=== PATIENT | female | born 1945 | race African-American/Black ===

== ENCOUNTER 2024-04-28 08:41 | Inpatient (IN) | payer OTHER ==
[~2024-04-28] VITALS: Ht 157.5 cm; Wt 78.5 kg
[2024-04-28 09:31] LABS: BASOPHILS % (AUTO) 0.7 % (0.0-2.0); EOSINOPHILS # (AUTO) 0.4 K/uL (0.0-0.7); EOSINOPHILS % (AUTO) 7.9 % (0.0-6.0); HEMATOCRIT 41 % (33-45); HEMOGLOBIN 13.5 g/dL (11.5-14.8); LYMPHOCYTES # (AUTO) 1.1 K/uL (0.8-4.8); LYMPHOCYTES % (AUTO) 19.7 % (20.0-44.0); MEAN CORPUSCULAR HEMOGLOBIN 27 PG (26.0-33.0); MEAN CORPUSCULAR HGB CONC 33 g/dl (31.0-36.0); MEAN CORPUSCULAR VOLUME 82 fL (82-100); MONOCYTES # (AUTO) 0.7 K/uL (0.1-1.30); MONOCYTES % (AUTO) 12.9 % (2.0-12.0); NEUTROPHILS # (AUTO) 3.2 K/uL (1.8-8.9); NEUTROPHILS % (AUTO) 58.8 % (43.0-81.0); PLATELET COUNT (AUTO) 238 K/uL (150-450); RED BLOOD CELL COUNT(AUTO) 5.04 MIL/uL (4.0-5.2); RED CELL DISTRIBUTION WIDTH 13.3 % (11.5-15.0); WHITE BLOOD COUNT (AUTO) 5.4 K/uL (4.3-11.0)
[2024-04-28 09:41] LABS: CALCIUM, SERUM 8.8 mg/dL (8.5-10.1); CARBON DIOXIDE 23 mmol/L (21-32); CHLORIDE 104 mmol/L (98-107); GLUCOSE 293 mg/dL (74-106); POTASSIUM 3.9 mmol/L (3.5-5.1); SODIUM SERUM 139 mmol/L (136-145); UREA NITROGEN, BLOOD 24 mg/dL (7-18)
[2024-04-28 09:49] LABS: LACTIC ACID 1.8 mmol/L (0.4-2.0)
[2024-04-28 09:51] LABS: INR 0.99 (0.91-1.10); PARTIAL THROMBOPLASTIN TIME 24.7 SEC (24.3-34.3); PROTHROMBIN TIME 10.5 SECS (9.2-11.1)
[2024-04-28 09:59] LABS: ALANINE AMINOTRANSFERASE 20 U/L (12-78); ALBUMIN 2.9 g/dL (3.4-5.0)
[2024-04-28 10:24] LABS: ALKALINE PHOSPHATASE 112 U/L (46-116)
[2024-04-28 10:28] LABS: ASPARTATE AMINOTRANSFERASE 14 U/L (15-37); BILIRUBIN,DIRECT 0.2 mg/dL (0.0-0.2); BILIRUBIN,TOTAL 0.7 mg/dL (0.2-1.0); TOTAL PROTEIN, SERUM 7.6 g/dL (6.4-8.2)
[2024-04-28 10:29] LABS: CREATININE 1.4 mg/dL (0.6-1.3)
[2024-04-28] MEDS: CEFEPIME 1 GM in IV D5W 50 ML IV ONE (10:38)
[2024-04-28] MEDS ORDERED: MAGN400T26 PO (10:41)
[2024-04-28] MEDS ORDERED: CANA300T PO (10:41)
[2024-04-28] MEDS ORDERED: ASPI-1420 PO (10:41)
[2024-04-28] MEDS ORDERED: GABA-532 PO (10:41)
[2024-04-28] MEDS ORDERED: ACET-73 PO (10:41)
[2024-04-28] MEDS: IV NS 0.9% 1,000 ML BAG IV ONE (10:46)
[2024-04-28] MEDS ORDERED: MAGNESIUM HYDROXIDE 30 ML UDC PO PRN (11:00)
[2024-04-28] MEDS ORDERED: Z GUARD REMEDY 4 OZ OINT TP PRN (11:00)
[2024-04-28] MEDS ORDERED: MAG HYDROX/AL HYDROX/SIMETH 30 ML UDC PO PRN (11:00)
[2024-04-28] MEDS ORDERED: ONDANSETRON HCL/PF 4 MG/2 ML VIAL IVP PRN (11:00)
[2024-04-28] MEDS: VANCOMYCIN 1 GM in IV D5W 250 ML IV ONE (11:00)
[2024-04-28] MEDS: ACETAMINOPHEN 325 MG TABLET PO PRN (11:12)
[2024-04-28 12:00] VITALS: BP 155/90; TEMP 98.2; O2SAT 97
[2024-04-28] MEDS ORDERED: DEXTROSE 50%-WATER 50 ML DISP.SYRIN IV PRN (12:00)
[2024-04-28] MEDS: ENOXAPARIN SODIUM 40 MG/0.4 ML DISP.SYRIN SQ SCH (12:34)
[2024-04-28] MEDS: BLOOD SUGAR DIAGNOSTIC 1 EACH STRIP VI SCH (12:35)
[2024-04-28] MEDS: VANCOMYCIN 750 MG in IV D5W 250 ML IV ONE (12:48)
[2024-04-28] MEDS: INSULIN REGULAR, HUMAN 100 UNIT/ML 3 ML VIAL SQ PRN (13:30)
[2024-04-28 16:32] VITALS: BP 155/104; TEMP 98.4; O2SAT 99
[2024-04-28] MEDS: CLONIDINE HCL 0.1 MG TABLET PO PRN (17:18)
[2024-04-28 20:00] VITALS: BP 117/67; TEMP 97.7; O2SAT 99
[2024-04-28] MEDS: METHOCARBAMOL (500MG) 500 MG TABLET PO PRN (22:46)
[2024-04-28] MEDS: CEFEPIME 2 GM in IV D5W 100 ML IV SCH (22:55)
[2024-04-29 04:00] VITALS: BP 153/76; TEMP 98.1; O2SAT 96
[2024-04-29 06:45] LABS: BASOPHILS % (AUTO) 0.6 % (0.0-2.0); EOSINOPHILS # (AUTO) 0.3 K/uL (0.0-0.7); EOSINOPHILS % (AUTO) 5.3 % (0.0-6.0); HEMATOCRIT 39 % (33-45); HEMOGLOBIN 12.7 g/dL (11.5-14.8); LYMPHOCYTES % (AUTO) 17.8 % (20.0-44.0); MEAN CORPUSCULAR HEMOGLOBIN 27 PG (26.0-33.0); MEAN CORPUSCULAR HGB CONC 33 g/dl (31.0-36.0); MEAN CORPUSCULAR VOLUME 82 fL (82-100); MONOCYTES # (AUTO) 0.7 K/uL (0.1-1.30); MONOCYTES % (AUTO) 11.8 % (2.0-12.0); NEUTROPHILS # (AUTO) 3.7 K/uL (1.8-8.9); NEUTROPHILS % (AUTO) 64.5 % (43.0-81.0); PLATELET COUNT (AUTO) 216 K/uL (150-450); RED BLOOD CELL COUNT(AUTO) 4.77 MIL/uL (4.0-5.2); RED CELL DISTRIBUTION WIDTH 13.1 % (11.5-15.0); WHITE BLOOD COUNT (AUTO) 5.7 K/uL (4.3-11.0)
[2024-04-29 07:01] LABS: CARBON DIOXIDE 23 mmol/L (21-32); CHLORIDE 107 mmol/L (98-107); CREATININE 0.8 mg/dL (0.6-1.3); GLUCOSE 123 mg/dL (74-106); MAGNESIUM 2.1 mg/dL (1.8-2.4); PHOSPHORUS 2.6 mg/dL (2.5-4.9); POTASSIUM 3.9 mmol/L (3.5-5.1); SODIUM SERUM 140 mmol/L (136-145)
[2024-04-29 08:00] VITALS: BP 157/75; TEMP 98.6; O2SAT 98
[2024-04-29 08:47] LABS: UREA NITROGEN, BLOOD 15 mg/dL (7-18)
[2024-04-29 12:00] VITALS: BP 142/72; TEMP 98.3; O2SAT 98
[2024-04-29] MEDS: VANCOMYCIN 1 GM in IV D5W 250ml IV SCH (12:17)
[2024-04-29 16:00] VITALS: BP 148/83; TEMP 98.1; O2SAT 99
[2024-04-29] MEDS: MAGNESIUM OXIDE 400 MG TABLET PO SCH (17:36)
[2024-04-29] MEDS ORDERED: Medication Not On Formulary EA (Canagliflozin (Invokana) 300 MG) PO SCH (18:00)
[2024-04-29 20:00] VITALS: BP 150/87; TEMP 98.5; O2SAT 96
[2024-04-29] MEDS: GABAPENTIN 100 MG CAPSULE PO SCH (21:57)
[2024-04-30] MEDS: VANCOMYCIN 750 MG in IV D5W 250 ML IV SCH (00:12)
[2024-04-30 04:00] VITALS: BP 158/87; TEMP 98.8; O2SAT 96
[2024-04-30 06:44] LABS: BASOPHILS % (AUTO) 0.7 % (0.0-2.0); EOSINOPHILS # (AUTO) 0.4 K/uL (0.0-0.7); EOSINOPHILS % (AUTO) 6.6 % (0.0-6.0); HEMATOCRIT 39 % (33-45); HEMOGLOBIN 12.6 g/dL (11.5-14.8); LYMPHOCYTES # (AUTO) 1.1 K/uL (0.8-4.8); LYMPHOCYTES % (AUTO) 18.4 % (20.0-44.0); MEAN CORPUSCULAR HEMOGLOBIN 27 PG (26.0-33.0); MEAN CORPUSCULAR HGB CONC 33 g/dl (31.0-36.0); MEAN CORPUSCULAR VOLUME 82 fL (82-100); MONOCYTES # (AUTO) 0.7 K/uL (0.1-1.30); MONOCYTES % (AUTO) 11.2 % (2.0-12.0); NEUTROPHILS # (AUTO) 3.8 K/uL (1.8-8.9); NEUTROPHILS % (AUTO) 63.1 % (43.0-81.0); PLATELET COUNT (AUTO) 232 K/uL (150-450); RED BLOOD CELL COUNT(AUTO) 4.72 MIL/uL (4.0-5.2); WHITE BLOOD COUNT (AUTO) 5.9 K/uL (4.3-11.0)
[2024-04-30 07:14] LABS: CALCIUM, SERUM 8.6 mg/dL (8.5-10.1); CARBON DIOXIDE 27 mmol/L (21-32); CHLORIDE 107 mmol/L (98-107); CREATININE 0.8 mg/dL (0.6-1.3); GLUCOSE 138 mg/dL (74-106); POTASSIUM 3.9 mmol/L (3.5-5.1); SODIUM SERUM 139 mmol/L (136-145); UREA NITROGEN, BLOOD 15 mg/dL (7-18)
[2024-04-30] MEDS: ASPIRIN EC 81 MG TABLET.DR PO SCH (10:09)
[2024-04-30] MEDS: CHLORHEXIDINE GLUCONATE 4% 118 ML BOTTLE TP SCH (10:21)
[2024-04-30 12:00] VITALS: BP 147/92; TEMP 98.3; O2SAT 97
[2024-04-30 20:33] VITALS: BP 141/80; TEMP 98.4; O2SAT 97
[2024-04-30] MEDS: TRAMADOL HCL 50 MG TABLET PO PRN (21:50)
[2024-05-01 04:45] VITALS: BP 164/90; TEMP 98.1; O2SAT 97
[2024-05-01 08:00] VITALS: BP 163/94; TEMP 99.1; O2SAT 98
[2024-05-01] MEDS: GENTAMICIN 0.1% OINT 15 GM TUBE TP SCH (08:46)
[2024-05-01] MEDS ORDERED: SULF1TAB48 PO (10:55)
[2024-05-01 16:00] VITALS: BP 106/96; TEMP 97.9
[2024-05-01 20:00] VITALS: BP 155/98; TEMP 98.5; O2SAT 98
[2024-05-01] MEDS: *INSULIN REGULAR(HUMULIN R)HUM 100 UNIT/ML VIAL SQ PRN (21:26)
[2024-05-02 04:00] VITALS: BP 150/88; TEMP 98.5; O2SAT 98
[2024-05-02 08:00] VITALS: BP 154/86; TEMP 97.9; O2SAT 100
[2024-05-02 16:00] VITALS: BP 143/88; TEMP 97.7; O2SAT 97
[2024-05-02 20:00] VITALS: BP 148/95; TEMP 98.2; O2SAT 97
[2024-05-02] MEDS: SULFAMETH/TRIMETH 800/160 MG 1 UDTAB TABLET PO SCH (21:29)
[2024-05-03 04:00] VITALS: BP 152/95; TEMP 98.4; O2SAT 97
[2024-05-03 08:00] VITALS: BP 133/91; TEMP 98.4; O2SAT 97
[2024-05-03 16:00] VITALS: BP 149/99; TEMP 98.6; O2SAT 97
== END 2024-05-04 | DRG 299 ==
LOC: ER 08:48 → MEDSG1 11:03
PROVIDERS: ADMIT Internal Medicine; ATTEND Internal Medicine
DX: I87.2 Venous insufficiency (chronic) (peripheral) (principal); E43 Unspecified severe protein-calorie malnutrition; N17.0 Acute kidney failure with tubular necrosis; L97.819 Non-pressure chronic ulcer of other part of right lower leg with unspecified severity; L97.829 Non-pressure chronic ulcer of other part of left lower leg with unspecified severity; E11.40 Type 2 diabetes mellitus with diabetic neuropathy, unspecified; E11.51 Type 2 diabetes mellitus with diabetic peripheral angiopathy without gangrene; E88.09 Other disorders of plasma-protein metabolism, not elsewhere classified; M89.8X9 Other specified disorders of bone, unspecified site; Z79.84 Long term (current) use of oral hypoglycemic drugs; Z88.0 Allergy status to penicillin; Z95.820 Peripheral vascular angioplasty status with implants and grafts; Z96.642 Presence of left artificial hip joint; Z68.31 Body mass index [BMI] 31.0-31.9, adult
CPT/HCPCS: 36415; 71045-TC; 73590-TC; 80048-TC; 80076-TC; 80202-TC; 82962-TC; 83605-TC; 83735-TC; 84100-TC; 85025-TC; 85652-TC; 85730-TC; 86140-TC; 87040-TC; 93970-TC; 97110-TC; 97530-TC; A4223; A6253; A6403; G0378; J0692; J1650; J1815; J3370; J3371; J7040; J7060

== ENCOUNTER 2025-01-15 09:47 | Emergency (ER) | payer OTHER ==
[~2025-01-15] VITALS: Ht 167.6 cm; Wt 77.1 kg
[~2025-01-15 09:47] MED LIST: ACET-73 PO; ASPI-1420 PO; CANA300T PO; GABA-532 PO; MAGN400T26 PO; SULF1TAB48 PO
[2025-01-15 13:17] VITALS: BP 138/87; TEMP 98.3; O2SAT 98
== END 2025-01-15 13:19 | disposition home health service (06) ==
LOC: ER 09:49
DX: Z04.2 Encounter for examination and observation following work accident (principal); E11.9 Type 2 diabetes mellitus without complications; I10 Essential (primary) hypertension; R51.9 Headache, unspecified; Z79.82 Long term (current) use of aspirin; Z79.84 Long term (current) use of oral hypoglycemic drugs; Z86.73 Personal history of transient ischemic attack (TIA), and cerebral infarction without residual deficits; Z88.0 Allergy status to penicillin; Z60.2 Problems related to living alone; W01.190A Fall on same level from slipping, tripping and stumbling with subsequent striking against furniture, initial encounter; Y93.89 Activity, other specified; Y92.89 Other specified places as the place of occurrence of the external cause; Y99.8 Other external cause status
CPT/HCPCS: 70450-TC

== ENCOUNTER 2025-02-16 14:27 | Emergency (ER) | payer OTHER ==
[~2025-02-16] VITALS: Ht 167.6 cm; Wt 80.7 kg
[2025-02-16 14:58] LABS: BASOPHILS % (AUTO) 0.4 % (0.0-2.0); EOSINOPHILS # (AUTO) 0.1 K/uL (0.0-0.7); EOSINOPHILS % (AUTO) 2.6 % (0.0-6.0); HEMATOCRIT 40 % (33-45); HEMOGLOBIN 13.2 g/dL (11.5-14.8); LYMPHOCYTES % (AUTO) 18.6 % (20.0-44.0); MEAN CORPUSCULAR HEMOGLOBIN 27 PG (26.0-33.0); MEAN CORPUSCULAR HGB CONC 33 g/dl (31.0-36.0); MEAN CORPUSCULAR VOLUME 82 fL (82-100); MONOCYTES # (AUTO) 0.6 K/uL (0.1-1.30); NEUTROPHILS # (AUTO) 3.6 K/uL (1.8-8.9); NEUTROPHILS % (AUTO) 67.4 % (43.0-81.0); PLATELET COUNT (AUTO) 175 K/uL (150-450); RED BLOOD CELL COUNT(AUTO) 4.91 MIL/uL (4.0-5.2); WHITE BLOOD COUNT (AUTO) 5.3 K/uL (4.3-11.0)
[2025-02-16 15:11] LABS: ALANINE AMINOTRANSFERASE 21 U/L (12-78); ALBUMIN 3.1 g/dL (3.4-5.0); ALKALINE PHOSPHATASE 72 U/L (46-116); ASPARTATE AMINOTRANSFERASE 26 U/L (15-37); BILIRUBIN,DIRECT 0.4 mg/dL (0.0-0.2); BILIRUBIN,TOTAL 1.6 mg/dL (0.2-1.0); CARBON DIOXIDE 22 mmol/L (21-32); CHLORIDE 106 mmol/L (98-107); GLUCOSE 150 mg/dL (74-106); LIPASE 19 U/L (16-77); POTASSIUM 3.2 mmol/L (3.5-5.1); SODIUM SERUM 138 mmol/L (136-145); TOTAL PROTEIN, SERUM 7.4 g/dL (6.4-8.2); UREA NITROGEN, BLOOD 26 mg/dL (7-18)
[2025-02-16 15:17] LABS: CALCIUM, SERUM 8.7 mg/dL (8.5-10.1)
[2025-02-16 16:24] LABS: SERUM AMMONIA 24 umol/L (11-32)
[2025-02-16 16:31] LABS: ACETAMINOPHEN <10 ug/ml (10-30); SALICYLATE < 2.8 mg/dL (2.8-20.0)
[2025-02-16 16:32] LABS: ALCOHOL, BLOOD < 3 mg/dL (0-10)
[2025-02-16 17:38] VITALS: TEMP 98.9
[2025-02-16 18:10] VITALS: BP 171/100; O2SAT 98
== END 2025-02-16 18:42 | disposition short-term general hospital (02) ==
LOC: ER 14:30
DX: S06.5X0A Traumatic subdural hemorrhage without loss of consciousness, initial encounter (principal); R41.82 Altered mental status, unspecified; I11.9 Hypertensive heart disease without heart failure; E11.9 Type 2 diabetes mellitus without complications; Z79.82 Long term (current) use of aspirin; Z79.899 Other long term (current) drug therapy; Z60.2 Problems related to living alone; Z79.84 Long term (current) use of oral hypoglycemic drugs; Z86.73 Personal history of transient ischemic attack (TIA), and cerebral infarction without residual deficits; Z88.0 Allergy status to penicillin; W18.39XA Other fall on same level, initial encounter; Y93.89 Activity, other specified; Y92.89 Other specified places as the place of occurrence of the external cause; Y99.8 Other external cause status
CPT/HCPCS: 36415; 70450-TC; 71045-TC; 80048-TC; 80076-TC; 82140-TC; 82962-TC; 83690-TC; 84443-TC; 84484-TC; 85025-TC; G0480

== ENCOUNTER 2025-05-02 11:35 | Emergency (ER) | payer MEDICARE, OTHER ==
[~2025-05-02] VITALS: Ht 167.6 cm; Wt 76.2 kg
[2025-05-02 12:15] LABS: PLATELET COUNT (AUTO) 212 K/uL (150-450); RED BLOOD CELL COUNT(AUTO) 4.56 MIL/uL (4.0-5.2); RED CELL DISTRIBUTION WIDTH 15.3 % (11.5-15.0); WHITE BLOOD COUNT (AUTO) 5.4 K/uL (4.3-11.0)
[2025-05-02 12:24] LABS: INR 1.05 (0.91-1.10)
[2025-05-02 12:31] LABS: APPEARANCE,URINE CLEAR (CLEAR); BLOOD, URINE NEGATIVE Ery/uL (NEGATIVE); LEUKOCYTE ESTERASE ,URINE NEGATIVE (NEGATIVE); NITRITE, URINE NEGATIVE (NEGATIVE); UGLUCOSE 3+ mg/dL (NEGATIVE)
[2025-05-02 12:35] LABS: LACTIC ACID 2.9 mmol/L (0.4-2.0)
[2025-05-02 12:38] LABS: CALCIUM, SERUM 9.3 mg/dL (8.5-10.1); CREATININE 1.0 mg/dL (0.6-1.3); SODIUM SERUM 145 mmol/L (136-145); UREA NITROGEN, BLOOD 13 mg/dL (7-18)
[2025-05-02] MEDS ORDERED: IOHEXOL-300 100 ML VIAL IV ONE (12:43)
[2025-05-02] MEDS ORDERED: IV NS 0.9% 250 ML IV ONE (12:43)
[2025-05-02 12:45] LABS: ASPARTATE AMINOTRANSFERASE 13 U/L (15-37); TOTAL PROTEIN, SERUM 7.2 g/dL (6.4-8.2)
[2025-05-02 12:50] LABS: ADD URINE CULTURE NO; SQUAMOUS EPITHELIAL CELL,UR Rare /HPF (None Seen)
[2025-05-02] MEDS ORDERED: DRY EYE RELIEF EACHEYE (12:53)
[2025-05-02] MEDS ORDERED: ARTIFICIAL TEAR LEFTEYE (12:53)
[2025-05-02] MEDS ORDERED: NEO/5DRO3 LEFTEYE (12:53)
[2025-05-02] MEDS ORDERED: CANA300T PO (12:53)
[2025-05-02] MEDS ORDERED: GABA-532 PO (12:53)
[2025-05-02] MEDS ORDERED: METO25TA6 PO (12:53)
[2025-05-02] MEDS ORDERED: DOCU100T2 PO (12:53)
[2025-05-02] MEDS ORDERED: LEVE750T4 PO (12:53)
[2025-05-02] MEDS ORDERED: INSU100V7 SQ (12:53)
[2025-05-02] MEDS ORDERED: ACET-2030 PO (12:53)
[2025-05-02] MEDS ORDERED: SENN8.6T19 PO (12:53)
[2025-05-02] MEDS ORDERED: ACET-868 PO (12:53)
[2025-05-02] MEDS ORDERED: AMIN30LI66 PO (12:53)
[2025-05-02] MEDS ORDERED: INSU100I14 SQ ×2 (12:53)
[2025-05-02] MEDS ORDERED: MAGN400O6 PO (12:53)
[2025-05-02] MEDS ORDERED: CLON1PAT TD (12:53)
[2025-05-02] MEDS ORDERED: CARB15DR3 LEFTEYE (12:53)
[2025-05-02] MEDS ORDERED: MULT-594 PO (12:53)
[2025-05-02] MEDS ORDERED: CARB15DR LEFTEYE (12:53)
[2025-05-02] MEDS ORDERED: PANT40TA2 PO (12:53)
[2025-05-02] MEDS ORDERED: OLAN2.5T3 PO (12:53)
[2025-05-02 19:11] VITALS: BP 167/90; TEMP 98.3; O2SAT 97
== END 2025-05-02 19:12 | disposition short-term general hospital (02) ==
LOC: ER 11:37
DX: S06.5XAA Traumatic subdural hemorrhage with loss of consciousness status unknown, initial encounter (principal); E11.9 Type 2 diabetes mellitus without complications; I10 Essential (primary) hypertension; R53.1 Weakness; Z79.84 Long term (current) use of oral hypoglycemic drugs; Z79.899 Other long term (current) drug therapy; Z88.0 Allergy status to penicillin; Z86.79 Personal history of other diseases of the circulatory system; Z87.39 Personal history of other diseases of the musculoskeletal system and connective tissue; Z60.2 Problems related to living alone; X58.XXXA Exposure to other specified factors, initial encounter; Y93.9 Activity, unspecified; Y92.89 Other specified places as the place of occurrence of the external cause; Y99.8 Other external cause status
CPT/HCPCS: 99291; 70450; 71045; 93005; 84145; 85025; 80048; 87086; 83605 ×2; 80076; 81001; 36415; 85730; 70480; 87040 ×2; 87081; J7050; Q9967